=== PATIENT | male | born 1950 | race Caucasian/White ===

== ENCOUNTER → 2017-09-03 | Emergency (ER) | payer OTHER ==
[~2017-09-03] VITALS: Ht 177.8 cm; Wt 84.8 kg
[~2017-09-03] MED LIST: ASA81 MG PO; AZOR 5/20 MG TA1 TAB PO; CRESTOR10 MG PO; LOTREL 10-20 M1 EACH
== END | disposition home or self-care (01) ==
LOC: ER 18:56
DX: N20.9 Urinary calculus, unspecified (principal)